=== PATIENT | female | born 1965 | race Caucasian/White ===

== ENCOUNTER 2019-01-02 18:15 | Emergency (ER) | payer BC ==
[~2019-01-02] VITALS: Ht 154.9 cm; Wt 68.0 kg
[2019-01-02 19:23] VITALS: BP 138/79
== END 2019-01-02 19:23 | disposition home or self-care (01) ==
LOC: ER 18:15
DX: G56.91 Unspecified mononeuropathy of right upper limb (principal); I10 Essential (primary) hypertension
CPT/HCPCS: 99282